=== PATIENT | male | born 1985 | race Caucasian/White ===

== ENCOUNTER 2017-07-04 15:04 | Emergency (ER) | payer OTHER ==
--- NOTE | 2017-07-04 15:03 | EDPHY ---
H & P Time Seen by Provider: 07/04/17 15:03 HPI/ROS: CHIEF COMPLAINT: With left shoulder injury HISTORY OF PRESENT ILLNESS: Was going off of a jump [place] and injured his left shoulder and hip at 1:30 p.m. Today. Wearing a helmet did not lose consciousness. Denies headache neck or back pain weakness or numbness in extremities. Left shoulder pain radiates a little bit to the back, worse with movement or palpation, symptoms moderate. Started just after the fall. REVIEW OF SYSTEMS: Eye: no change in vision ENT: no sore throat Cardiac: no chest pain or syncope Pulmonary: no cough or SOB Abdomen: no vomiting, diarrhea, abdominal pain Musculoskeletal: HPI Skin: no rash Neuro: no headache Constitutional: no fever : no urinary symptoms A comprehensive 10 point review of systems is otherwise negative aside from elements mentioned in the history of present illness. PAST MEDICAL HISTORY: Negative Social history: Here with his girlfriend General Appearance: Alert and conversant, cooperative. Eyes: No scleral icterus. ENT, Mouth: Normal mucous membranes. Respiratory: Normal respiratory effort, breath sounds equal, lungs are clear to auscultation. Cardiovascular: Regular rate and rhythm. Gastrointestinal: Abdomen is soft and non tender. Neurological: Alert, face symmetric, normal motor and sensory in extremities. Skin: Warm and dry, no rashes. Musculoskeletal: No midline cervical thoracic or lumbar spine tenderness. He has some posterior left chest wall tenderness over the scapula, left mid clavicular tenderness. Otherwise extremities are nontender. Pelvis stable. Tenderness on palpation of the left lateral hip but no pain with rotation or axial loading of that hip. Psychiatric: Not agitated. Emergency Department course/MDM: Declined pain medications, chest x-ray clavicle x-ray and left hip x-ray. 1552: Results discussed with the patient including review his x-rays on the computer system. Left midshaft clavicle fracture and 20% left apical pneumothorax. 1656: Patient says he is comfortable, patient was personally seen by Dr. Connolly who recommends discharge with office follow-up and chest x-ray this week. Warned he needs to see Orthopedics to discuss ORIF versus conservative treatment. 1711: Unable to walk, will give IV fluids, patient wants to try and go home which I think is reasonable. After IV fluids he was able to walk, discharge home with outpatient trauma follow-up. Warned to return immediately for trouble breathing. Constitutional: Initial Vital Signs Temperature (C) 36.8 C 07/04/17 14:55 Heart Rate 60 07/04/17 14:55 Respiratory Rate 16 07/04/17 14:55 Blood Pressure 139/56 H 07/04/17 14:55 O2 Sat (%) 95 07/04/17 14:55 O2 Delivery Mode Room Air Allergies/Adverse Reactions: No Known Allergies Allergy (Unverified 07/04/17 15:07) Home Medications: Medication Instructions Recorded oxyCODONE/APAP 5/325 [Percocet] 1 - 2 tab PO Q4-6PRN PRN #13 tab 07/04/17 Medical Decision Making - Diagnostics Imaging Results: Imaging Impressions Clavicle X-Ray 07/04/17 15:07 Impression: Comminuted displaced mid left clavicle fracture as above. Chest X-Ray 07/04/17 15:08 Impression: Moderate left pneumothorax. Possible nondisplaced fractures of the left lateral fifth and sixth ribs. Displaced mid left clavicle fracture. Hip X-Ray 07/04/17 15:08 Impression: No evidence for acute osseous abnormality left hip. Imaging: I viewed and interpreted images myself Differential Diagnosis: The differential for left-sided chest pain considered including but not limited to pneumothorax, rib fracture, hemothorax, chest wall contusion. Consult/Admit Bed Type: [place] [id number] Departure - Departure Disposition: Home, Routine, Self-Care Clinical Impression: Pneumothorax on left Closed left clavicular fracture Qualifiers: Encounter type: initial encounter Clavicle location: shaft Fracture alignment: displaced Qualified Code(s): S42.022A - Displaced fracture of shaft of left clavicle, initial encounter for closed fracture Condition: Good Instructions: Oxycodone/Acetaminophen (By mouth), Clavicle Fracture (ED) Additional Instructions: Limited use left shoulder. Follow up with Orthopedics in the office later this week. See surgeon in the office on as scheduled. Return immediately for trouble breathing, worsening pain Referrals: Telma Connolly MD [Medical Doctor] - 07/06/17 8:00 am Nawaf Colon MD [Medical Doctor] - 2-3 days without fail Prescriptions: oxyCODONE/APAP 5/325 [Percocet] 1 - 2 tab PO Q4-6PRN PRN #13 tab PRN Reason: Pain
[2017-07-04 19:01] VITALS: BP 126/79; PULSE 67; RESP 16; TEMP 98.2; O2SAT 96
--- NOTE | 2017-07-05 07:51 | GCON ---
[f rep st] CONSULTATION DATE OF CONSULTATION: 07/04/2017 CHIEF COMPLAINT: 1. Clavicle fracture. 2. Pneumothorax. HISTORY OF PRESENT ILLNESS: Chinedu is a 31-year-old man who was trying to do a 360 when he fell landing on his left side and hip. He struck his head. He was wearing a helmet. He did not lose consciousn ess. Due to the extreme left shoulder pain, he presented to the ER. PAST MEDICAL HISTORY: None. SOCIAL HISTORY: He is a nonsmoker. He is present with his girlfriend. FAMILY HISTORY: Noncontributory. REVIEW OF SYSTEMS: 10-point review of systems negative. PHYSICAL EXAMINATION: VITALS: Reviewed. His O2 saturation is 95% on room air. GENERAL: Pleasant, w ell-nourished, well-groomed man, sitting up on gurney. HEENT: Normocephalic. No gross hearing defic its. Mucous membranes moist. Pupils equal and round. No otorrhea. No rhinorrhea. No midface insta bility. NECK: No tenderness. Full range of motion. LUNGS: Clear to auscultation bilaterally. No i ncreased work of breathing. CHEST: He does have swelling over his left clavicle. There is not tentin g. CARDIAC: Regular rate. No peripheral edema. ABDOMEN: Bowel sounds present. Soft, nontender, nond istended. MUSCULOSKELETAL: 5/5 strength upper and lower extremities with the exception of the left a rm which is in a sling. NEUROLOGIC: Grossly intact. No sensory abnormalities in the left upper extre mity. SKIN: Small abrasion, left hip. RESULTS: I personally reviewed the results of his x-rays. He has a clavicle fracture and a small pne umothorax on the left side. IMPRESSION AND PLAN: Chinedu Reyes is a 31-year-old status post fall while skiing with a left clavicle fracture. Sling for comfort. He will follow up with Dr. Colon as an outpatient. In terms of his pne umothorax, I offered the opportunity for admission. He would like to be discharged home. I will repe at the chest x-ray on morning. He understands that there is a risk of this getting worse an d he may need a chest tube. He understands to call if he has increasing shortness of breath. /[id number]/MODL
== END 2017-07-04 19:03 | disposition home or self-care (01) ==
LOC: EDUNIT#
DX: S42.022A Displaced fracture of shaft of left clavicle, initial encounter for closed fracture (principal); J93.9 Pneumothorax, unspecified; V00.328A Other snow-ski accident, initial encounter; Y99.8 Other external cause status; Y93.39 Activity, other involving climbing, rappelling and jumping off

== ENCOUNTER → 2017-07-06 | Outpatient (CLI) | payer OTHER | LOC: FIMAGING 09:55 | PROVIDERS: ATTEND Surgery | DX: J93.9 Pneumothorax, unspecified (principal); J90 Pleural effusion, not elsewhere classified ==

== ENCOUNTER → 2017-07-11 | Outpatient (CLI) | payer OTHER | LOC: FIMAGING 13:18 | PROVIDERS: ATTEND Surgery | DX: J93.83 Other pneumothorax (principal) ==

== ENCOUNTER 2017-07-14 12:08 | Day surgery (SDC) | payer OTHER ==
[2017-07-14] MEDS ORDERED: LIDOCAINE 1% 2 ML INJ ID PRN (12:34)
[2017-07-14] MEDS ORDERED: LR 1,000 ML IV ONE (12:34)
[2017-07-14] MEDS ORDERED: BUPIVACAINE 0.5% 30 ML SDV ONE (13:22)
[2017-07-14] MEDS ORDERED: ceFAZolin 2 GM/SWFI 2 GM/20 ML SYR IVP ONE (14:44)
--- NOTE | 2017-07-14 14:45 | PDHPUP ---
History & Physical Update H&P update statement: This history and physical update is based on an assessment of the patient which was completed after admission or registration (within 24 hours), but prior to the surgery/procedure. H&P update: H&P reviewed & patient examined, no change in patient's condition since H&P completed
[2017-07-14] MEDS ORDERED: MIDAZOLAM 2 MG/2 ML VIAL IVP ONE (14:49)
--- NOTE | 2017-07-14 14:50 | PDANEPAE ---
ANE History of Present Illness Patient presents for ORIF L clavicle ANE Past Medical History - Cardiovascular History Hx Hypertension: No Hx Arrhythmias: No Hx Chest Pain: No Hx Coronary Artery / Peripheral Vascular Disease: No Hx CHF / Valvular Disease: No Hx Palpitations: No - Pulmonary History Hx COPD: No Hx Asthma/Reactive Airway Disease: Yes Hx Recent Upper Respiratory Infection: No Hx Oxygen in Use at Home: No Hx Sleep Apnea: No Sleep Apnea Screening Result - Last Documented: Negative Pulmonary History Comment: hx of childhood asthma - Neurologic History Hx Cerebrovascular Accident: No Hx Seizures: No Hx Dementia: No - Endocrine History Hx Diabetes: No - Renal History Hx Renal Disorders: No - Liver History Hx Hepatic Disorders: No - Neurological & Psychiatric Hx Hx Neurological and Psychiatric Disorders: No - Cancer History Hx Cancer: No - Congenital Disorder History Hx Congenital Disorders: No - GI History Hx Gastrointestinal Disorders: No - Other Health History Other Health History: none - Chronic Pain History Chronic Pain: Yes (left lung pneumothorax) - Surgical History Prior Surgeries: small growth removed from back ANE Review of Systems Review of Systems: - Exercise capacity METS (RN): 6 METS ANE Patient History - Allergies Allergies/Adverse Reactions: No Known Allergies Allergy (Verified 07/13/17 14:49) - Home Medications Home medications: home medication list seen and reviewed Home Medications: oxyCODONE/APAP 5/325 [Percocet] 07/13/17 [Last Taken Unknown] - NPO status NPO Status: no food or drink >8 hours NPO Since - Liquids (Date): 07/14/17 NPO Since - Liquids (Time): 09:00 NPO Since - Solids (Date): 07/13/17 NPO Since - Solids (Time): 20:00 - Anes Hx Anes Hx: no prior problems - Smoking Hx Smoking Status: Never smoked - Family Anes Hx Family Hx Anesthesia Complications: none ANE Labs/Vital Signs - Vital Signs Blood Pressure: 121/82 Heart Rate: 86 Respiratory Rate: 18 O2 Sat (%): 97 Height: 185.42 cm Weight: 74.843 kg ANE Physical Exam - Airway Neck exam: decreased ROM Mallampati Score: Class 1 Mouth exam: normal dental/mouth exam - Pulmonary Pulmonary: no respiratory distress - Cardiovascular Cardiovascular: regular rate and rhythym - ASA Status ASA Status: I ANE Anesthesia Plan Anesthesia Plan: GA w LMA (RBA discussed)
[2017-07-14] MEDS ORDERED: fentaNYL 100 MCG/2 ML INJ ONE ×3 (14:59→16:34)
[2017-07-14] MEDS ORDERED: PROPOFOL 200 MG/20 ML VIAL ONE ×2 (15:00→15:42)
[2017-07-14] MEDS ORDERED: ONDANSETRON 4 MG/2 ML VIAL ONE (15:05)
[2017-07-14] MEDS ORDERED: DEXAMETHASONE 4 MG/ML VIAL ONE (15:05)
[2017-07-14] MEDS ORDERED: LR 500 ML IV PRN (17:04)
[2017-07-14] MEDS ORDERED: fentaNYL 100 MCG/2 ML INJ IVP PRN (17:04)
[2017-07-14] MEDS ORDERED: ONDANSETRON 4 MG/2 ML VIAL IVP PRN (17:04)
[2017-07-14] MEDS ORDERED: NALOXONE HCL 0.4 MG/ML INJ IVP PRN (17:04)
[2017-07-14] MEDS ORDERED: KETOROLAC 30 MG/1 ML SDV ONE (17:10)
--- NOTE | 2017-07-14 17:40 | POSTANESTH ---
Post Anesthetic Evaluation Cardiovascular Status: Similar to Pre-Op Cond Respiratory Status: Similar to Pre-op Cond. Level of Consciousness/Mental Status: Alert and Oriented Pain Control: Adequate, Prn Tx Ordered Nausea/Vomiting Control: Adequate, Prn Tx Ordered Complications Possibly Related to Anesthesia: None Noted
[2017-07-14 18:47] VITALS: BP 147/82
--- NOTE | 2017-07-15 21:33 | GOP ---
[f rep st] OPERATIVE REPORT DATE OF OPERATION: 07/14/2017 SURGEON: Nawaf Colon MD OFFICE COMMUNICATION PROFESSOR: John Barnes ANESTHESIA: General. PREOPERATIVE DIAGNOSIS: Left displaced clavicle fracture. POSTOPERATIVE DIAGNOSIS: Left displaced clavicle fracture. PROCEDURE PERFORMED: Open reduction, internal fixation of left displaced clavicle fracture. FINDINGS: ESTIMATED BLOOD LOSS: 20 cc. INDICATIONS: The patient is a 31-year-old male who sustained his injury while skiing. He was initially seen in the ER and diagnosed with a clavicle fracture. On the chest x-ray, it was noted that he had a pneumothorax. This was stable, and he has been followed by a general surgeon with radiographs. I saw him in the office. I evaluated the x-ray. The patient has a displaced clavicle fracture with about 2.5 cm of shortening. In addition, he has what is likely a butterfly fragment that is tenting the skin and was quite prominent. With the amount of shortening he has, an open reduction, internal fixation may lead to slightly better outcomes in terms of upper extremity endurance and function compared to closed treatment. I discussed with him the options. We discussed that the fracture will likely heal without a surgery; however, it will heal in a malunited position. We discussed the significance of a malunion in the setting of a clavicle fracture. There is also a higher chance of nonunion. This is in contrast to ORIF with the associated surgical risks, both anesthetic and surgical risks, and in his case the pneumothorax, which would have to be given special consideration, ORIF would decrease his chance of malunion and nonunion compared to closed treatment and may give him a slightly earlier return of function and performance of his sport with better upper extremity endurance. We had this discussion, and after our discussion, he wished to proceed with surgery. Discussed the risks of surgery. Risks include pain, bleeding, infection, damage to structures, infection including hardware infection, delayed union or nonunion, loss of reduction, stiffness, need for further surgery including hardware removal. He understood these risks. Prior to his surgery, I reviewed the case with the anesthesiologist. The suggestion was to perform this case in the main hospital. I then discussed the case personally with general surgeon following his pneumothorax. Prior to surgery, an x-ray was done which showed his pneumothorax to be stable without any significant decrease in his lung function. She contacted her partner to be available while the case was being performed. Plan was for him to review the chest x-ray after the case was done. Prior to performing the case, I discussed this with the anesthesiologist as well so as to not have to use any paralysis or positive-pressure ventilation to prevent the worsening of the pneumothorax. DESCRIPTION OF PROCEDURE: The patient was seen in the preoperative holding area. He was given the opportunity to ask questions. All questions were answered. Consent was signed. Surgical site was marked. He was then transferred to the operative suite and patient moved from the rney to the operating table. Care was taken to pad all bony prominences. On the operating table, he was placed in the beach chair position. Again, great care was taken to pad all bony prominences in this position. It was a semi beach chair position with the body elevated about 30-40 degrees up. Great care was taken to ensure that the eyes were padded, that the head was padded. 2 g ancef were given prior to incision. Time-out was called including surgical and anesthesia teams, confirming the surgical site and surgery to be performed. The left upper extremity was prepped and draped for a clavicle fracture, which always includes prepping of the chest. I marked out a standard incision for a clavicle fracture. Of note, I did notice in the preop area that this patient had quite significant tenting of the skin over the butterfly fragment with some blanching of the skin. The skin was completely intact; however, this fragment was quite prominent, and this was noted by the patient and his partner. I made my incision, carefully dissected through the skin, raising thick skin flaps. Dissected down to the fascia. Identified several branches of the supraclavicular nerves. He had quite small branches. These were protected. I incised the periosteum over the fracture as well as some early callus and organized hematoma. Elevated the fracture end to visualize the fracture end. He likely had 2 small butterfly fragments. The butterfly fragment that was tenting the skin had a very sharp end and was flipped over 90 degrees. There was a very small fragment inferior that was too small for fixation. This I only noticed on later x-rays. I then freed up the fracture, freed up the butterfly fragment, reduced the butterfly fragment to the medial shaft and then reduced the lateral shaft to these 2 fragment holding them as 1. I then used two 2.4 lag screws to lag the butterfly fragment to either shaft piece to reduce our fracture. I used a 2.4 in this case because this was quite a small butterfly fragment, and there was a risk of splitting it with a larger screw. After placing the screws, there was a very good bite and held our reduction nicely. I checked and confirmed with fluoroscopy. Then I chose a plate. This was a 7-hole superior plate, slightly bent to conform to his shaft. I then placed several cortical screws to hold the plate down to the bone and did not have to place him in compression mode as the lags compressed the fracture ends nicely. I then placed 2 locking screws at the ends and then checked final x- rays. Happy with the reduction. During the case, I communicated with the anesthesiologist, who did not notice any signs of abnormal function. I irrigated copiously with sterile saline. 0 Vicryl was used to close the fascia and periosteum over the bone, completely covering the plate, and then the incision was closed in layers with 3-0 Monocryl, 4-0 Monocryl. Sterile dressing was applied. The patient placed in a sling and was awakened from general anesthesia in stable condition and taken to the PACU in stable condition. In the PACU, a chest x-ray was taken. The chest x-ray was reviewed by the radiologist and the general surgeon, and this was communicated to me that there was actually a slight decrease in the size of the pneumothorax. At this point, the patient was discharged home. Follow up instructions both for me and the general surgery service. IMPLANTS USED: Synthes Superior Clavicle Plate. POSTOPERATIVE CONDITION: Stable. POSTOPERATIVE PLAN: The patient will follow up with me in 10-14 days. At this point, he is to remain in the sling at all times except for hygiene, and we will advance activity when he follows up. Xray will be taken to evaluate fracture healing /[id number]/MODL MTDD
== END 2017-07-14 18:49 | disposition home or self-care (01) ==
LOC: FSGY 12:08
PROVIDERS: ATTEND Orthopaedic Surgery Hand Surgery
PROC: BP15ZZZ Fluoroscopy of Left Clavicle (ICD-10-PCS; 2017-07-14)
PROC: 0PSB04Z Reposition Left Clavicle with Internal Fixation Device, Open Approach (ICD-10-PCS; principal; 2017-07-14 14:00)
DX: S42.022A Displaced fracture of shaft of left clavicle, initial encounter for closed fracture (principal); S27.0XXD Traumatic pneumothorax, subsequent encounter; Y93.23 Activity, snow (alpine) (downhill) skiing, snowboarding, sledding, tobogganing and snow tubing; Y99.8 Other external cause status
CPT/HCPCS: C1713; J1100; J1885; J2250; J2405; J2704; J3010

== ENCOUNTER → 2017-08-24 | Outpatient (CLI) | payer OTHER | LOC: BMCIMAGING 08:37 | PROVIDERS: ATTEND Orthopaedic Surgery Hand Surgery | DX: S42.022D Displaced fracture of shaft of left clavicle, subsequent encounter for fracture with routine healing (principal) ==